=== PATIENT | male | born 1970 | race Caucasian/White ===

== ENCOUNTER 2023-06-21 05:22 | Emergency (ER) | payer MEDICAID ==
[~2023-06-21] VITALS: Ht 165.1 cm; Wt 72.5 kg
[2023-06-21 05:27] VITALS: O2SAT 98
[2023-06-21 06:05] LABS: BASOPHILS % 0.6 % (0.0-2.0); HEMATOCRIT. 44.7 % (42.0-52.0); HEMOGLOBIN. 14.9 g/dL (14.0-18.0); LYMPHOCYTES % 13.2 % (20.0-50.0); MEAN CORPUSCULAR HEMOGLOBIN 32.6 pg (28.0-32.0); MEAN CORPUSCULAR HGB CONC 33.3 g/dL (31.0-37.0); MEAN CORPUSCULAR VOLUME 97.9 fL (80.0-94.0); MEAN PLATELET VOLUME 8.5 fl (7.4-10.4); MONOCYTES % 3.3 % (2.0-8.0); NEUTROPHILS % 82.9 % (40.0-76.0); PLATELET 346 x1000/uL (130-400); RED BLOOD CELL COUNT 4.56 mill/uL (4.7-6.1); RED CELL DISTRIBUTION WIDTH 13.6 % (11.6-14.6); WHITE BLOOD COUNT 11.4 x1000/uL (4.5-11.0)
[2023-06-21 06:08] LABS: CHLORIDE 101 mEq/L (98-107); INDEX HEMOLYSI 2 (1-3); INDEX ICTERIC 1 (1-4); INDEX LIPEMIC 1 (1-3); POTASSIUM 4.1 mEq/L (3.5-5.1); SODIUM 135 mEq/L (136-145)
[2023-06-21 06:13] LABS: PROTHROMBIN TIME 11.1 sec (9.6-11.0)
[2023-06-21 06:15] LABS: ALANINE AMINOTRANSFERASE 41 IU/L (13-61); ALBUMIN 4.4 g/dL (3.4-5.0); ASPARTATE AMINOTRANSFERASE 43 IU/L (15-37); BILIRUBIN TOTAL 0.5 mg/dL (0.1-1.0); CALCIUM 9.5 mg/dL (8.5-10.1); CARBON DIOXIDE 20 mEq/L (21-32); CREATININE 1.3 mg/dL (0.6-1.3); GLUCOSE 345 mg/dL (70-105); UREA NITROGEN BLOOD 34 mg/dL (7-21)
[2023-06-21] MEDS ORDERED: MORPHINE SULFATE 2 MG/ML CPJ (NOT FOR IM USE) IV ONE (06:30)
[2023-06-21] MEDS ORDERED: SODIUM CHLORIDE 0.9% 1,000 ML IV ONE ×2 (06:30→12:00)
[2023-06-21] MEDS ORDERED: ONDANSETRON HCL 4MG/2ML INJ IV ONE (06:30)
[2023-06-21] MEDS ORDERED: HYDRALAZINE 20MG/ML VIAL IV ONE (07:45)
[2023-06-21] MEDS ORDERED: MORPHINE SULFATE 4 MG/ML CPJ (NOT FOR IM USE) IV ONE (08:15)
[2023-06-21] MEDS ORDERED: PANTOPRAZOLE SODIUM 40 MG/VIAL IV ONE (09:00)
[2023-06-21] MEDS ORDERED: LORAZEPAM 2MG/ML CPJ IV ONE (09:00)
[2023-06-21] MEDS ORDERED: PANT40SU MT (12:58)
[2023-06-21] MEDS ORDERED: METO-293 MT (12:58)
[2023-06-21] MEDS ORDERED: LORA-250 MT (12:58)
[2023-06-21] MEDS ORDERED: MAGN296S70 MT (12:58)
[2023-06-21 13:35] VITALS: BP 170/93; PULSE 105; RESP 20; TEMP 98.5
== END 2023-06-21 13:36 | disposition home or self-care (01) ==
LOC: ER 05:22
DX: R10.84 Generalized abdominal pain (principal); K56.41 Fecal impaction; F41.9 Anxiety disorder, unspecified; E11.9 Type 2 diabetes mellitus without complications
CPT/HCPCS: 80053; 83690; 85025; 85610; 36415; 74176; 96361; 96374; 96375; 96376; 99285; J0360; J2060; J2405; C9113; J2270 ×2; J7030; Z7610 ×2